=== PATIENT | female | born 2000 | race Caucasian/White ===

== ENCOUNTER → 2023-02-28 07:49 | Outpatient (CLI) | payer BC, SELFPAY ==
--- NOTE | ~2023-02-28 | US_ITS ---
EXAMINATION: US OB follow up DATE: 02/28/2023 08:43 INDICATION: Size greater than dates during third trimester TECHNIQUE: Real-time ultrasound of the pelvis was performed. The interpreting radiologist was not pre sent for the study. COMPARISON: None. FINDINGS: There is a single living fetus in vertex presentation. The placenta is anterior/fundal. Fet al cardiac activity and movement are noted. heart rate is 122 beats per minute (bpm). The amniotic fluid index is 16.2 cm which is normal (normal range: 7.7 cm to 24.9 cm) . The following biometric data were obtained: Biparietal diameter (BPD): 9.0 cm; head circumference (HC): 32.8 cm; abdominal circumference (AC): 31 .4 cm; femur length (FL): 6.9 cm. These measurements are concordant. Estimated weight is 2770 g +/- 415 g, which correlates with the 45th percentile when 03/28/2023 is used as estimated date of delivery. As single measurements, these parameters are each equal to the following estimated gestational ages w ith ranges of +/- 2 standard deviations: BPD: 36 weeks 4 days ( 33 weeks 3 days - 39 weeks 6 days). HC: 37 weeks 2 days ( 34 weeks 4 days - 40 weeks 0 days). AC: 35 weeks 3 days ( 32 weeks 3 days - 38 weeks 2 days). FL: 35 weeks 5 days ( 32 weeks 5 days - 38 weeks 5 days). estimated gestational age based solely on measurements from this exam is 36 weeks 2 days +/- 2 weeks 4 days. IMPRESSION: 1. Single living fetus in vertex presentation. 2. Normal amniotic fluid index. 3. Estimated weight is 2770 g +/- 415 g, which correlates with the 45th percentile when 03/28/19 24 is used as estimated date of delivery. Reviewed, dictated and finalized at location B. [facility] IMPRESSION: 1. Single living fetus in vertex presentation. 2. Normal amniotic fluid index. 3. Estimated weight is 2770 g +/- 415 g, which correlates with the 45th p ercentile when 03/28/2023 is used as estimated date of delivery.
== END ==
PROVIDERS: PCP Nurse Practitioner Family; Visit Provider Nurse Practitioner Family
DX: O34.599 Maternal care for other abnormalities of gravid uterus, unspecified trimester (principal); Z3A.00 Weeks of gestation of pregnancy not specified
CPT/HCPCS: 76816